=== PATIENT | female | born 1970 | race Caucasian/White ===

== ENCOUNTER → 2017-02-18 | Outpatient (CLI) | payer BC ==
[~2017-02-18] MED LIST: CALC500C70 PO; HYDO25 TOP; LORA-749 PO; METHPOW7 PO; MULT-513 PO; Synthroid PO
--- NOTE | 2017-02-19 12:17 | MAMMOGRAPHY REPORT ---
BILATERAL DIGITAL SCREENING MAMMOGRAM TOMOSYNTHESIS WITH CAD: 02/18/2017 CLINICAL HISTORY: Routine screening. Patient has no complaints. TECHNIQUE: Breast tomosynthesis in addition to standard 2D mammography was performed. Current study was also evaluated with a Computer Aided Detection (CAD) system. COMPARISON: Comparison is made to exams dated: 01/30/2016 mammogram, 01/28/2015 mammogram, 01/15/2014 mammogram, and 01/14/2013 mammogram - [facility]. BREAST COMPOSITION: The tissue of both breasts is heterogeneously dense, which may obscure small ma sses. FINDINGS: No suspicious spiculated or irregular mass, architectural distortion or cluster of suspic ious microcalcifications is seen. IMPRESSION: ACR BI-RADS CATEGORY 1: NEGATIVE There is no mammographic evidence of malignancy. A 1 year screening mammogram is recommended. The p atient will receive written notification of the results. Approximately 10% of breast cancers are not detected with mammography. A negative mammographic repor t should not delay biopsy if a clinically suggestive mass is present. Lucita Joshua M.D. ay/:02/18/2017 22:16:29 [employer] Architect: Sana HOUSTON(R)(M), [facility] letter sent: Normal 1/2 BI-RADS Code: ACR BI-RADS Category 1: Negative
== END | disposition home or self-care (01) ==
LOC: C.MAMM 08:36
PROVIDERS: ATTEND Obstetrics & Gynecology
DX: Z12.31 Encounter for screening mammogram for malignant neoplasm of breast (principal)

== ENCOUNTER → 2018-02-26 | Outpatient (CLI) | payer OTHER ==
--- NOTE | 2018-02-27 07:56 | MAMMOGRAPHY REPORT ---
BILATERAL DIGITAL SCREENING MAMMOGRAM TOMOSYNTHESIS WITH CAD: 02/26/2018 CLINICAL HISTORY: Routine screening. Patient has no complaints. TECHNIQUE: Breast tomosynthesis in addition to standard 2D mammography was performed. Current study was also evaluated with a Computer Aided Detection (CAD) system. COMPARISON: Comparison is made to exams dated: 02/18/2017 mammogram, 01/30/2016 mammogram, 01/28/2015 ma mmogram, 01/15/2014 mammogram, and 01/14/2013 mammogram - [facility]. BREAST COMPOSITION: The tissue of both breasts is heterogeneously dense, which may obscure small mas ses. FINDINGS: No suspicious masses, calcifications, or areas of architectural distortion are noted in ei ther breast. There has been no significant interval change compared to prior exams. IMPRESSION: ACR BI-RADS CATEGORY 1: NEGATIVE There is no mammographic evidence of malignancy. A 1 year screening mammogram is recommended. The pa tient will receive written notification of the results. Approximately 10% of breast cancers are not detected with mammography. A negative mammographic report should not delay biopsy if a clinically suggestive mass is present. Shanda Ramos M.D. ah/:02/26/2018 07:50:10 Pathology Laboratory Director: Maria De Jesus HOUSTONR, M, [facility] letter sent: Normal 1/2 BI-RADS Code: ACR BI-RADS Category 1: Negative
== END | disposition home or self-care (01) ==
LOC: C.MAMM 07:31
PROVIDERS: ATTEND Obstetrics & Gynecology
DX: Z12.31 Encounter for screening mammogram for malignant neoplasm of breast (principal)

== ENCOUNTER → 2018-06-25 | Outpatient (CLI) | payer OTHER ==
--- NOTE | 2018-07-03 07:50 | POLYSOMNOGRAPH REPORT ---
CLINICAL DATA: A 47-year-old female with asthma and allergic rhinitis with a history of loud snoring and witnessed apneic episodes. She is considering an oral appliance through her current dentist, Dr. Alvarado. On the evening of 06/25/2018, home sleep apnea test was performed using a [employer] type 3 monitor. The patient's BMI is elevated at 37.44. RECORDING RESULTS: Total recording time was 9.1 hours. The patient's monitoring time and estimated sleep time 6.3 hours. RESPIRATORY DATA: There was no evidence of clinically significant sleep apnea seen. The LYNDON was 2.9. There were 18 hypopneic episodes. The longest respiratory event was 32 seconds. OXIMETRY DATA: No significant hypoxemia was seen; oxygen lisa was 88%. Mean saturation was 93%. HEART RATE DATA: Heart rates ranged from 61-75 beats per minute. SNORING DATA: Loud snoring was recorded throughout the night. IMPRESSION: No evidence of clinically significant sleep apnea/hypopnea or nocturnal hypoxemia. RECOMMENDATIONS: The patient should continue to practice good sleep hygiene. If an oral appliance is being considered for snoring, that may be of benefit. There is no significant sleep apnea seen. [facility]
== END | disposition home or self-care (01) ==
LOC: C.NEUR 08:51
PROVIDERS: ATTEND Internal Medicine Pulmonary Disease
DX: R06.83 Snoring (principal); R06.81 Apnea, not elsewhere classified; Z79.899 Other long term (current) drug therapy; E03.9 Hypothyroidism, unspecified; E78.5 Hyperlipidemia, unspecified